=== PATIENT | female | born 1940 | race Caucasian/White ===

== ENCOUNTER 2019-06-27 08:55 | Emergency (ER) | payer MEDICARE, OTHER ==
--- NOTE | 2019-06-27 09:18 | ED ---
Complex/Multi-Sys Presentation - HPI Summary HPI Summary: This pt is a 78 Y/O F presenting to [facility] with a CC of a fall that happened on . She states that she hit the R side of her face and caused an abrasion to her R eyebrow. She states that her head hurts with palpation. She also has pain on her R hip which is more severe than her head and is currently rated an 8 /10 in severity. She also stated that her L leg is bruised. She denies any CP, headaches, neck pain, CP, generalized weakness, and LOC. She has a PMHx of HTN and CHF. She is not currently on blood thinners. - History Of Current Complaint Time Seen by Provider: 06/27/19 09:03 Hx Obtained From: Patient Onset/Duration: Sudden Onset, Lasting Days - 3, Still Present Timing: Constant Severity Currently: Severe - 8/10 Severity Initially: Severe Location: Negative Aggravating Factor(s): Pt suffered a fall 06/24/19 Alleviating Factor(s): nothing Associated Signs And Symptoms: Positive: Other - NEGATIVE: neck pain, and LOC. POSITIVE: pain to R hip, pain to forehead, abrasion on R eyebrow, L leg bruised. Negative: Weakness, Headache, SOB, Chest Pain - Allergies/Home Medications Allergies/Adverse Reactions: Allergies Allergy/AdvReac Type Severity Reaction Status Date / Time No Known Allergies Allergy Verified 06/27/19 09:17 Home Medications: Home Medications Acetaminophen [Pain Relief] 1,000 mg PO TID 06/27/19 [History Confirmed 06/27/19 ] Calcium Polycarbophil [Fibercon] 625 mg PO DAILY 06/27/19 [History Confirmed 11/14] Carvedilol TAB* [Coreg TAB*] 6.25 mg PO BID 06/27/19 [History Confirmed 06/27/19 ] Citalopram TAB* [Celexa TAB*] 10 mg PO DAILY 06/27/19 [History Confirmed ] Melatonin 4 mg PO BEDTIME 06/27/19 [History Confirmed 06/27/19] Rivaroxaban TAB(*) [Xarelto 20 mg] 20 mg PO DAILY 06/27/19 [History Confirmed ] Rosuvastatin Calcium [Crestor] 5 mg PO DAILY 06/27/19 [History Confirmed ] Sacubitril/Valsartan [Entresto 24 mg-26 mg Tablet] 1 tab PO BID 06/27/19 [ History Confirmed 06/27/19] Spironolactone 12.5 mg PO DAILY 06/27/19 [History Confirmed 06/27/19] PMH/Surg Hx/FS Hx/Imm Hx Previously Healthy: Yes Endocrine/Hematology History: Reports: Hx Anticoagulant Therapy, Hx Thyroid Disease Denies: Hx Diabetes Cardiovascular History: Reports: Hx Angina, Hx Congestive Heart Failure, Hx Hypertension, Hx Pacemaker/ICD Respiratory History: Denies: Hx Asthma, Hx Chronic Obstructive Pulmonary Disease (COPD) Musculoskeletal History: Reports: Hx Arthritis Neurological History: Reports: Hx Headaches Psychiatric History: Reports: Hx Anxiety, Hx Depression - Cancer History Cancer Type, Location and Year: OVARIAN CA Hx Chemotherapy: No Hx Radiation Therapy: No - Surgical History Surgery Procedure, Year, and Place: Repair of Right Lower Leg s/p fracture. Hysterectomy Infectious Disease History: No Infectious Disease History: Denies: Traveled Outside the in Last 30 Days - Social History Occupation: Retired Lives: At [facility] Substance Use Type: Reports: None Review of Systems Negative: Fever Negative: Chest Pain Negative: Shortness Of Breath Positive: Other - POSITIVE: R hip pain, forehead pain Skin: Negative - neck pain , Other - R eyebrow abrasion, L upper leg bruising Neurological: Negative - LOC Negative: Headache, Weakness All Other Systems Reviewed And Are Negative: Yes Physical Exam - Summary Physical Exam Summary: Appearance: The patient is well-nourished in no acute distress and in no acute pain. Skin: Resolving hematoma on the L medial upper leg with induration, superficial laceration above the R eyebrow HEENT: The head is normocephalic and atraumatic. The pupils are equal and reactive. The conjunctivae are clear and without drainage. Nares are patent and without drainage. Mouth reveals moist mucous membranes and the throat is without erythema and exudate. The external ears are intact. The ear canals are patent and without drainage. The tympanic membranes are intact. Neck: The neck is supple with full range of motion and non-tender. There are no carotid bruits. There is no neck vein distension. Respiratory: Chest is non-tender. Lungs are clear to auscultation and breath sounds are symmetrical and equal. Cardiovascular: Heart is regular rate and rhythm. There is no murmur or rub auscultated. There is no peripheral edema and pulses are symmetrical and equal. Abdomen: The abdomen is soft and non-tender. There are normal bowel sounds heard in all four quadrants and there is no organomegaly palpated. Musculoskeletal: There is Tenderness on the R paralumbar and sciatic area noted. Extremities are non-tender with full range of motion. There is good capillary refill. There is no peripheral edema or calf tenderness elicited. Neurological: Patient is alert and oriented to person, place and time. The patient has symmetrical motor strength in all four extremities. Cranial nerves are grossly intact. Deep tendon reflexes are symmetrical and equal in all four extremities. Psychiatric: The patient has an appropriate affect and does not exhibit any anxiety or depression. Triage Information Reviewed: Yes Vital Signs On Initial Exam: Initial Vitals Temp Pulse Resp BP Pulse Ox 97.9 F 85 15 111/68 97 06/27/19 09:08 06/27/19 09:08 06/27/19 09:08 06/27/19 09:08 06/27/19 09:08 Vital Signs Reviewed: Yes Diagnostics - Vital Signs Vital Signs Temp Pulse Resp BP Pulse Ox 06/27/19 09:08 97.9 F 85 15 111/68 97 - Laboratory Lab Statement: Any lab studies that have been ordered have been reviewed, and results considered in the medical decision making process. - CT Pelvis CT CT Interpretation Completed By: Radiologist Summary of CT Findings: No fracture of the left hip or pelvis is noted although degenerative changes are noted. Sacroiliac joint degenerative change is noted. ED physician has reviewed this report. Lumbar Spine CT CT Interpretation Completed By: Radiologist Summary of CT Findings: Ankylosis of the T12-L5 vertebral bodies unchanged from previous exam. No free fluid is identified. ED physician has reviewed this report. Complex Multi-Symp Course/Dx Course Of Treatment: Ms. Jones took a fall 3 days ago and was sent over from [facility] because she has continued pain in her back and hips. She did sustain some bruises at the time of the fall which are resolving. She has a large medial thigh ecchymotic area with some induration on the left. Again this looks like it's resolving and is not where she indicates her pain is to me. Her abdomen is soft and nontender. CT of her lumbar spine and pelvis show no acute pathology. I will treat her with pain medication at this point as I think she is wrenched her back and it will take some time to recover. - Diagnoses Provider Diagnoses: Hematoma, Low back strain Discharge ED - Sign-Out/Discharge Documenting (check all that apply): Patient Departure Patient Received Moderate/Deep Sedation with Procedure: No - Discharge Plan Condition: Good Disposition: HOME Prescriptions: traMADol TAB* [Ultram*] 50 mg PO Q6HR PRN #20 tab MDD 4 PRN Reason: Pain Patient Education Materials: Lower Back Exercises (ED), Hematoma (ED) Referrals: [facility] [Outside] - 3 Days Additional Instructions: PLEASE FOLLOW UP WITH YOUR PRIMARY CARE PROVIDER IN 2-3 DAYS AND RETURN TO THE EMERGENCY DEPARTMENT FOR ANY NEW OR WORSENING SYMPTOMS. Take the prescribed medications as directed. - Billing Disposition and Condition Condition: GOOD Disposition: Home - Attestation Statements Document Initiated by Scribe: Yes Documenting Scribe: Ed Deleon Provider For Whom Jenifer is Documenting (Include Credential): Anil Silva MD Scribe Attestation: Ed Morgan, scribed for Anil Silva MD on 06/27/19 at 1129. Scribe Documentation Reviewed: Yes Provider Attestation: The documentation as recorded by the Ed segura accurately reflects the service I personally performed and the decisions made by Anil hancock MD Status of Scribe Document: Viewed
[2019-06-27] MEDS ORDERED: traMADol TAB* 50 MG PO ONE (10:41)
[2019-06-27 10:53] VITALS: BP 111/72
== END 2019-06-27 10:52 | disposition home or self-care (01) ==
LOC: ED 08:55
DX: S00.83XA Contusion of other part of head, initial encounter (principal); S39.012A Strain of muscle, fascia and tendon of lower back, initial encounter; M54.2 Cervicalgia; W19.XXXA Unspecified fall, initial encounter; Y92.9 Unspecified place or not applicable; I10 Essential (primary) hypertension; I50.9 Heart failure, unspecified; Z79.899 Other long term (current) drug therapy; Z79.01 Long term (current) use of anticoagulants; E03.9 Hypothyroidism, unspecified; I20.9 Angina pectoris, unspecified; Z95.0 Presence of cardiac pacemaker; R51 Headache
CPT/HCPCS: 72131; 72192; 99283; A9270-GY

== ENCOUNTER 2020-01-19 16:59 | Emergency (ER) | payer MEDICAID, MEDICARE, OTHER ==
[2020-01-19] MEDS ORDERED: NS 0.9% 1000 ML** 1,000 ML IV ONE (17:28)
--- NOTE | 2020-01-19 17:34 | ED ---
Adult Trauma - HPI Summary HPI Summary: Patient is an 79 y/o F presenting to [facility] with complaints of BEATTY, bilateral hip pain, and tailbone pain secondary to a fall [employer]. It is reported that the patient was in the bathroom trying to take her socks off when she lost her balance and fell. Patient notes contusion to her right forehead. No LOC reported , patient was not able to ambulate after the fall. She notes that she was feeling some SOB after the fall but this has since resolved. Patient is on Xarelto due to Hx of CVA. 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 Pain at hips is characterized as a "pins and needles" sensation. No N/V , neck pain, chest pain reported. Patient does note that she has some tingling to her BLE. Home medications and allergies are reviewed. - History of Current Complaint Time Seen by Provider: 01/19/20 17:10 Hx Obtained From: Patient Mechanism of Injury: Fall Ambulatory at the Scene: No Loss of Consciousness: no loss of consciousness Restraints: None Onset/Duration: Still Present Onset of Pain: Prior to Arrival Current Severity: Severe Pain Intensity: 8 Pain Scale Used: 0-10 Numeric Location: Head, Back, Abdomen/Pelvis - hips Associated Signs & Symptoms: Positive: Other: - positive - BEATTY, bilateral hip pain, tailbone pain, fall, tingling to BLE; negative - neck pain. Negative: Chest Pain, Nausea/Vomiting, Loss of Consciousness - Allergy/Home Medications Allergies/Adverse Reactions: Allergies Allergy/AdvReac Type Severity Reaction Status Date / Time No Known Allergies Allergy Verified 06/27/19 09:17 Home Medications: Home Medications Digoxin TAB* [Lanoxin TAB*] 0.125 mg PO MOWEFR 01/20/13 [History Confirmed 01/18] Levothyroxine TAB* [Synthroid 25 MCG TAB*] 25 mcg PO QAM 01/20/13 [History Confirmed 01/19/20] Calcium Polycarbophil [Fibercon] 625 mg PO DAILY 06/27/19 [History Confirmed ] Carvedilol TAB* [Coreg TAB*] 6.25 mg PO BID 06/27/19 [History Confirmed 01/19/20 ] Melatonin 4 mg PO BEDTIME 06/27/19 [History Confirmed 01/19/20] Rivaroxaban TAB(*) [Xarelto 20 mg] 20 mg PO DAILY 06/27/19 [History Confirmed ] Sacubitril/Valsartan [Entresto 24 mg-26 mg Tablet] 1 tab PO BID 06/27/19 [ History Confirmed 01/19/20] Acetaminophen TAB* [Tylenol TAB*] 650 mg PO BID PRN 01/19/20 [History Confirmed 01/19/20] Gabapentin CAP(*) [Neurontin 100 mg CAP(*)] 200 mg PO BEDTIME 01/19/20 [History Confirmed 01/19/20] HYDROcodone/ACETAMIN 5-325 MG* [[place] 5-325 TAB*] 1 tab PO QID PRN 01/19/20 [ History Confirmed 01/19/20] Nystatin TOP POWDER* 1 applic TOPICAL BID PRN 01/19/20 [History Confirmed ] Rosuvastatin (NF) [Crestor (NF)] 5 mg PO DAILY 01/19/20 [History Confirmed 01/18] Sennosides/Docusate Sodium [Senna Plus 8.6-50 mg Tablet] 2 tab PO BEDTIME [History Confirmed 01/19/20] PMH/Surg Hx/FS Hx/Imm Hx Endocrine/Hematology History: Reports: Hx Anticoagulant Therapy, Hx Thyroid Disease Denies: Hx Diabetes Cardiovascular History: Reports: Hx Angina, Hx Congestive Heart Failure, Hx Hypertension, Hx Pacemaker/ICD Respiratory History: Denies: Hx Asthma, Hx Chronic Obstructive Pulmonary Disease (COPD) Musculoskeletal History: Reports: Hx Arthritis Neurological History: Reports: Hx Headaches Psychiatric History: Reports: Hx Anxiety, Hx Depression - Cancer History Cancer Type, Location and Year: OVARIAN CA Hx Chemotherapy: No Hx Radiation Therapy: No - Surgical History Surgery Procedure, Year, and Place: Repair of Right Lower Leg s/p fracture. Hysterectomy Infectious Disease History: No Infectious Disease History: Denies: Traveled Outside the [place] in Last 30 Days - Family History Known Family History: Negative: Cardiac Disease, Hypertension, Diabetes - Social History Alcohol Use: None Substance Use Type: Reports: None Smoking Status (MU): Former Smoker Review of Systems Negative: Chest Pain Negative: Vomiting, Nausea Musculoskeletal: Other - positive - hip pain bilaterally, tailbone pain, fall; negative - neck pain Positive: Headache, Paresthesia - BLE All Other Systems Reviewed And Are Negative: Yes Physical Exam - Summary Physical Exam Summary: Constitutional: Well-developed, Well-nourished, Alert. (-) Distressed Skin: Warm, Dry HENT: Normocephalic; Right forehead contusion Eyes: Conjunctiva normal Neck: There is slight cervical spine tenderness on palpation. (-) JVD, (-) Stridor, (-) Tracheal deviation Cardio: Rhythm regular, rate normal, Heart sounds normal; Intact distal pulses; The pedal pulses are 2+ and symmetric. Radial pulses are 2+ and symmetric. (-) Murmur Pulmonary/Chest wall: Effort normal. (-) Respiratory distress, (-) Wheezes, (-) Rales Abd: Soft, (-) tenderness, (-) Distension, (-) Guarding, (-) Rebound Musculoskeletal: Lower thoracic and lumbar spine tenderness is noted, some pain over right hip. Lymph: (-) Cervical adenopathy Neuro: Alert, Oriented x3; slightly slurred speech secondary to prior CVA, no other motor deficits appreciated; GCS 15. Psych: Mood and affect Normal Triage Information Reviewed: Yes Vital Signs On Initial Exam: Initial Vitals Temp Pulse Resp BP Pulse Ox 97.9 F 86 18 138/79 95 01/19/20 17:13 01/19/20 17:13 01/19/20 17:13 01/19/20 17:13 01/19/20 17:13 Vital Signs Reviewed: Yes - [place] Coma Scale Best Eye Response: 4 - Spontaneous Best Motor Response: 6 - Obeys Commands Best Verbal Response: 5 - Oriented Coma Scale Total: 15 Procedures - Sedation Patient Received Moderate/Deep Sedation with Procedure: No Diagnostics - Vital Signs Vital Signs Temp Pulse Resp BP Pulse Ox 01/19/20 17:13 97.9 F 86 18 138/79 95 - Laboratory Result Diagrams: 01/19/20 17:35 01/19/20 17:35 Lab Statement: Any lab studies that have been ordered have been reviewed, and results considered in the medical decision making process. - CT BRAIN CT CT Interpretation Completed By: Radiologist Summary of CT Findings: IMPRESSION: 1. There is right frontal scalp contusion. 2. There is stable age-related diffuse cerebral volume loss and chronic. microvascular ischemic disease. Stable encephalomalacia of the right cerebellar. hemisphere possibly due to chronic infarct. 3. No acute intracranial pathology. THIS REPORT WAS REVIEWED BY ED PHYSICIAN. CERVICAL SPINE CT CT Interpretation Completed By: Radiologist Summary of CT Findings: IMPRESSION: No acute cervical spine fracture or other acute traumatic CT pathology. THIS REPORT WAS REVIEWED BY ED PHYSICIAN. - EKG 1742 Cardiac Rate: Other Rate - paced rhythm with rate of 85 BPM Summary of EKG Findings: EKG showed paced rhythm with rate of 85 BPM, no STEMI. ED physician has reviewed and interpreted this EKG. 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 It is reported that the patient was in the bathroom trying to take her socks off when she lost her balance and fell. Patient notes contusion to her right forehead. No LOC reported, patient was not able to ambulate after the fall. She notes that she was feeling some SOB after the fall but this has since resolved. Patient is on Xarelto due to Hx of CVA. 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 Pain at hips is characterized as a "pins and needles" sensation. No N/V, neck pain, chest pain reported. Patient does note that she has some tingling to her BLE. On physical exam, patient is noted to have a right -sided forehead contusion, slight cervical spine tenderness on palpation, lower throacic and lumbar spine tenderness is noted as well. Patient has pain over her right hip. She has slightly slurred speech secondary to prior CVA. No other motor deficits appreciated. EKG showed paced rhythm with rate of 85 BPM, no STEMI. BRAIN CT IMPRESSION: 1. There is right frontal scalp contusion. 2. There is stable age-related diffuse cerebral volume loss and chronic. microvascular ischemic disease. Stable encephalomalacia of the right cerebellar. hemisphere possibly due to chronic infarct. 3. No acute intracranial pathology. CERVICAL SPINE CT IMPRESSION: No acute cervical spine fracture or other acute traumatic CT pathology. Bloodwork was obtained and within normal limits with exception of BUN/creatinine ratio 23.8 and glucose 101. Patient is signed-out to Dr. Garay at 1900 01/19/20 pending right hip/ pelvis x-ray. - Diagnoses Provider Diagnoses: Fall, Hip pain Discharge ED - Sign-Out/Discharge Documenting (check all that apply): Sign-Out Patient Signing out patient TO: Briana Garay - Discharge Plan Condition: Stable Disposition: HOME Patient Education Materials: Fall Prevention for Older Adults (ED), Hip Pain ( ED) Referrals: Nickie Oreilly MD [Primary Care Provider] - 3 Days Additional Instructions: Follow up with your primary care provider in 2-3 days. Return to the emergency department for any new or worsening symptoms. - Billing Disposition and Condition Condition: STABLE Disposition: Home - Attestation Statements Document Initiated by Jenifer: Yes Documenting Scribe: MARTHA ROSSI Provider For Whom Jenifer is Documenting (Include Credential): MEHREEN JEFFERS DO Scribjuliane Attestation: MARTHA Morgan scribed for MEHREEN JEFFERS DO on 01/20/20 at 1424. Scribe Documentation Reviewed: Yes Provider Attestation: The documentation as recorded by the MARTHA segura accurately reflects the service I personally performed and the decisions made by , MEHREEN JEFFERS DO Status of Scribjuliane Document: Viewed
[2020-01-19 17:43] LABS: ABS Eosinophils 0.1 10^3/ul (0-0.6); ABS Lymphocytes 1.6 10^3/ul (1.0-4.8); ABS Monocytes 0.7 10^3/ul (0-0.8); ABS Neutrophils 4.6 10^3/ul (1.5-7.7); Eosinophil % 1.4 %; Hematocrit 36 % (35-47); Hemoglobin 12.3 g/dL (12.0-16.0); Lymphocyte % 22.9 %; Mean Corpuscular HGB Conc 34 g/dL (31-36); Mean Corpuscular Hemoglobin 31 pg (27-31); Mean Corpuscular Volume 90 fL (80-97); Mean Platelet Volume 8.9 fL (7.4-10.4); Nucleated Red Blood Cells % 0.1; Platelet Count 192 10^3/uL (150-450); Red Cell Distribution Width 13 % (10-15); White Blood Count 7.1 10^3/uL (3.5-10.8)
--- OUTSIDE RECORDS SUMMARY | 2020-01-19 17:50 | XMS REPORT | Continuity of Care Document ---
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 Onset: 07/31/2012 Left heart failure Tom Luz M.D. Onset: 07/31/2012 Mitral valve disorder Tom Luz M.D. Onset: 07/31/2012 Chronic ischemic heart disease Tom Luz M.D. Onset: 07/31/2012 Electrocardiogram abnormal Cardiology Doctor Loc 39 Onset: 06/04/2013 Coronary arteriosclerosis Cardiology Doctor Loc 39 Onset: 06/04/2013 Persistent atrial fibrillation [facility] ECHO Schedule Onset: 04/28/2017 Social History Type Date Description Comments Sex Unknown Tobacco Use Start: Unknown End: Former Cigarette Smoker smoked for a few Unknown 1-5 Cigarettes Daily years-quit 30 years ago ETOH Use Denies alcohol use Tobacco Use Start: Unknown End: Patient is a former Unknown smoker Recreational Drug Use Denies Drug Use Smoking Status Reviewed: 12/16/19 Patient is a former smoker Exercise Type/Frequency Does not exercise Allergies, Adverse Reactions, Alerts Description No Known Drug Allergies Medications Active Medications SIG Qnty Indications Ordering Date Provider Spironolactone 1/2 tab by mouth 45tabs I42.9 Madhavi Hawkins, 02/22/2019 25mg Tablets every day N.P. Fibercon 1 by mouth every Other Ordering 01/20/2019 625mg Tablets day Provider Melatonin 4 tablets by Other Ordering 12/28/2018 1mg Tablets mouth 1-2 hours Provider before bedtime for sleep. prn Tussin Cough DM every 6 hours as Other Ordering 12/02/2018 needed Provider 100-10mg/5ML Syrup Imodium A-D one after each 30caps Other Ordering 12/02/2018 2mg Capsules loose stool prn Provider Ipratropium 1 unit every 8 270ml Other Ordering 11/24/2018 [place]/Albuterol hours as needed Provider Sulfate 0.5-2.5(3)mg/3ML Solution Digoxin 1 by mouth every Other Ordering 03/13/2017 125mcg Tablets friday, Provider friday, friday Artificial Tears apply 2 drops 15ml Other Ordering 03/13/2017 1.4% twice daily Provider Solution Roland one tab by mouth Unknown 5-325mg Tablets every 4-6 hours as needed pain Gabapentin 1 capsule three Unknown 100mg Capsules times daily. SB Docusate Unknown Sodium/Senna 8.6-50mg Tablets Crestor 1 by mouth every Unknown 5mg Tablets day Entresto take 1 tab by Unknown 24-26mg Tablets mouth twice daily Coreg 1 tab by mouth Unknown 6.25mg Tablets twice a day Xarelto 1 by mouth every Unknown 20mg Tablets day Acetaminophen Extra 2 tabs, every 8 Unknown Strength hours 500mg Tablets Levothyroxine Sodium 1 po qd 90tabs Unknown 25mcg Tablets Immunizations Description No Information Available Vital Signs Date Vital Result Comment 12/16/2019 11:22am Height 62 inches 5'2" Heart Rate 70 /min BP Systolic 102 mmHg Rue reg cuff BP Diastolic 70 mmHg Rue reg cuff Respiratory Rate 18 /min Ejection Fraction <20% ECHO 01/12/2019 02/22/2019 9:50am Height 62 inches 5'2" Weight 140.00 lb Estimated d/t mobility BP Systolic Sitting 130 mmHg Lue reg cuff BP Diastolic Sitting 60 mmHg Lue reg cuff BMI (Body Mass Index) 25.6 kg/m2 Ejection Fraction <20% Echo 01/12/2019 Results Test Acquired Date Facility Test Result H/L Range Note Lipid Profile 12/21/2019 [facility] Triglycerides 169 mg/dL 1, 2 (Trig/Chol/HDL) [address] [place] [address] [phone] Cholesterol 164 mg/dL 3 HDL Cholesterol 33.6 mg/dL 4 LDL Cholesterol 97 mg/dL 5 1 [id number] 2 Desirable: <150 Borderline High: 150-199 High: 200-499 Very High: >500 3 Desirable: <200 Borderline High: 200-239 High: >239 4 Low: <40 Desirable: 40-60 High: >60 5 Desirable: <100 Near Optimal: 100-129 Borderline High: 130-159 High: 160-189 Very High: >189 Procedures Date Code Description Status 12/16/2019 22371 Pace Maker Eval W/Iterative Adjment Dual Lead Completed 12/16/2019 87704 Pace Maker Eval W/Iterative Adjment Dual Lead Completed 09/15/2019 57016 Pace Maker Eval W/Iterative Adjment Dual Lead Completed 09/15/2019 93975 Pace Maker Eval W/Iterative Adjment Dual Lead Completed Medical Devices Description No Information Available Encounters Type Date Location Provider Dx Diagnosis Office Visit 12/16/2019 [facility] Madhavi Hawkins, I49.5 Sick sinus 11:00a Of Stars Specialist N.P. syndrome Z95.0 Presence of cardiac pacemaker I50.22 Chronic systolic (congestive) heart failure I48.0 Paroxysmal atrial fibrillation E78.5 Hyperlipidemia, unspecified I10 Essential (primary) hypertension Assessments Date Code Description Provider 01/05/2020 I49.5 Sick sinus syndrome [facility] Pacer Schedule 01/05/2020 Z95.0 Presence of cardiac pacemaker [facility] Pacer Schedule 12/16/2019 I49.5 Sick sinus syndrome Tom Luz M.D. 12/16/2019 I49.5 Sick sinus syndrome Madhavi Hawkins, N.P. 12/16/2019 I49.5 Sick sinus syndrome [facility] Pacer Schedule 12/16/2019 Z95.0 Presence of cardiac pacemaker Tom Luz M.D. 12/16/2019 Z95.0 Presence of cardiac pacemaker Madhavi Hawkins, N.P. 12/16/2019 Z95.0 Presence of cardiac pacemaker [facility] Pacer Schedule 12/16/2019 I50.22 Chronic systolic (congestive) heart Madhavi Hawkins, N.P. failure 12/16/2019 I48.0 Paroxysmal atrial fibrillation Madhavi S. Foster, N.P. 12/16/2019 E78.5 Hyperlipidemia, unspecified Madhavi Hawkins N.P. 12/16/2019 I10 Essential (primary) hypertension Madhavi Hawkins, N.P. 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 09/15/2019 Z95.0 Presence of cardiac pacemaker [facility] Pacer Schedule Plan of Treatment Future Appointment(s):01/10/2020 2:21 pm - N[facility] at [facility]12/16/2019 - Madhavi Hawkins, N.P.I49.5 Sick sinus jvkxnpxcF98.0 Presence of cardiac pacemakerRecommendations:Battery only has 3 months left WE will bring you back every month until pacer reaches [place] - at that point we will schedule you for a generator change.I50.22 Chronic systolic (congestive) heart failureFollow up:1 mo PO battery check and BP check with it 6mo OV JFM, PO priorRecommendations:BP is low Decrease spironolactone to 1/2 (25mg) tab lgmmdP31.0 Paroxysmal atrial snbttmesmigrX19.5 Hyperlipidemia, sblspcoygybP66 Essential (primary) hypertension Functional Status Description No Information Available Mental Status Description No Information Available Referrals Description No Information Available
--- OUTSIDE RECORDS SUMMARY | 2020-01-19 17:50 | XMS REPORT | Continuity of Care Document ---
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 [phone] Rv Servicer Problems Active Problems Provider Date Atrial fibrillation [...] unit every 8 270ml Other Ordering 11/24/2018 [place]/Albuterol hours as needed Provider Sulfate 0.5-2.5(3)mg/3ML Solution Digoxin 1 by mouth every Other Ordering 03/13/2017 125mcg Tablets friday, Provider friday, friday Artificial Tears apply 2 drops 15ml Other Ordering 03/13/2017 1.4% twice daily Provider Solution [place] one tab by mouth Unknown 5-325mg Tablets [...] Result H/L Range Note Lipid Profile 12/21/2019 [facility] Triglycerides 169 mg/dL 1, 2 (Trig/Chol/HDL) [address] [place] [address] [phone] Cholesterol 164 mg/dL 3 HDL Cholesterol 33.6 mg/dL 4 LDL Cholesterol 97 mg/dL 5 1 [id number] 2 Desirable: <150 Borderline High: 150-199 High: 200-499 Very High: >500 3 Desirable: <200 Borderline High: 200-239 High: >239 4 Low: <40 Desirable: 40-60 High: >60 5 Desirable: <100 Near Optimal: 100-129 Borderline High: 130-159 High: 160-189 Very High: >189 Procedures Date Code Description Status 01/05/2020 43479 Interrogation Device Eval In Person W/ Completed Analysis,Single,Dual,Mul 01/05/2020 84142 Interrogation Device Eval In Person W/ Completed Analysis,Single,Dual,Mul 12/16/2019 48749 Pace Maker Eval W/Iterative Adjment Dual Lead Completed 12/16/2019 59983 Pace Maker Eval W/Iterative Adjment Dual Lead Completed 09/15/2019 56082 Pace Maker Eval W/Iterative Adjment Dual Lead Completed 09/15/2019 61467 Pace Maker Eval W/Iterative Adjment Dual Lead Completed Medical Devices Description No Information Available Encounters Type Date Location Provider Dx Diagnosis Office Visit 12/16/2019 [facility] Madhavi Hawkins, I49.5 Sick sinus 11:00a Of Elementary Reading Tutor N.P. syndrome Z95.0 Presence of cardiac pacemaker I50.22 Chronic systolic (congestive) heart failure I48.0 Paroxysmal atrial fibrillation E78.5 Hyperlipidemia, unspecified I10 Essential (primary) hypertension Assessments Date Code Description Provider 01/05/2020 I49.5 Sick sinus syndrome Tom Luz M.D. 01/05/2020 I49.5 Sick sinus syndrome [facility] Pacer Schedule 01/05/2020 Z95.0 Presence of cardiac pacemaker Tom Luz M.D. 01/05/2020 Z95.0 Presence of cardiac pacemaker [facility] Pacer Schedule 12/16/2019 I49.5 Sick sinus syndrome Tom Luz M.D. 12/16/2019 I49.5 Sick sinus syndrome Madhavi Hawkins N.P. 12/16/2019 I49.5 Sick sinus syndrome [facility] Pacer Schedule 12/16/2019 Z95.0 Presence of cardiac pacemaker Tom Luz M.D. 12/16/2019 Z95.0 Presence of cardiac pacemaker Madhavi Hawkins, N.P. 12/16/2019 Z95.0 Presence of cardiac pacemaker [facility] Pacer Schedule 12/16/2019 I50.22 Chronic systolic (congestive) heart Madhavi Hawkins, N.P. failure 12/16/2019 I48.0 Paroxysmal atrial fibrillation Madhavi Hawkins, N.P. 12/16/2019 E78.5 Hyperlipidemia, unspecified Madhavi Hawkins, N.P. 12/16/2019 I10 Essential (primary) hypertension Madhavi Hawkins, N.P. 11/18/2019 I50.22 Chronic systolic (congestive) heart Nickie Oreilly MD failure 11/18/2019 I48.0 Paroxysmal atrial fibrillation Nickie Oreilly MD 11/18/2019 I49.5 Sick sinus syndrome Nickie Oreilly MD 11/18/2019 E78.5 Hyperlipidemia, unspecified Nickie Oreilly, 11/18/2019 I10 Essential (primary) hypertension Nickie Oreilly [...] pacemaker [facility] Pacer Schedule Plan of Treatment 12/16/2019 - Madhavi Hawkins, N.P.I49.5 Sick sinus mqetcvqmF31.0 Presence of cardiac pacemakerRecommendations:Battery only has 3 months left WE will bring you back every month until pacer reaches [place] - at that point we will schedule you for a generator change.I50.22 Chronic systolic (congestive) heart failureFollow up:1 mo PO battery check and BP check with it 6mo OV JFM, PO priorRecommendations:BP is low Decrease spironolactone to 1/2 (25mg) tab ezqqbN36.0 Paroxysmal atrial eiotdxkisuywX10.5 Hyperlipidemia, jyjjumfzkmlU34 Essential (primary) hypertension Functional Status Description No Information Available Mental Status Description No Information Available Referrals Description No Information Available
--- OUTSIDE RECORDS SUMMARY | 2020-01-19 17:50 | XMS REPORT | Continuity of Care Document ---
:1940 External Reference #:[id number] Author Name Madhavi Hawkins N.P. (transmitted by agent of provider Maria C Watson) Address [address] 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 Problems Active Problems Provider Date Atrial fibrillation [...] unit every 8 270ml Other Ordering 11/24/2018 [place]/Albuterol hours as needed Provider Sulfate 0.5-2.5(3)mg/3ML Solution Digoxin 1 by mouth every Other Ordering 03/13/2017 125mcg Tablets friday, Provider friday, friday Artificial Tears apply 2 drops 15ml Other Ordering 03/13/2017 1.4% twice daily Provider Solution [place] one tab by mouth Unknown 5-325mg Tablets [...] kg/m2 Ejection Fraction <20% Echo 01/12/2019 Results Description No Information Available Procedures Date Code Description Status 12/16/2019 58779 Pace Maker Eval W/Iterative Adjment Dual Lead Completed 09/15/2019 43260 Pace Maker Eval W/Iterative Adjment Dual Lead Completed 09/15/2019 39418 Pace Maker Eval W/Iterative Adjment Dual Lead Completed Medical Devices Description No Information Available Encounters Description No Information Available Assessments Date Code Description Provider 12/16/2019 I49.5 Sick sinus syndrome Madhavi Hawkins, N.P. 12/16/2019 I49.5 Sick sinus syndrome [facility] Pacer Schedule 12/16/2019 Z95.0 Presence of cardiac pacemaker Madhavi Hawkins, N.P. 12/16/2019 Z95.0 Presence of cardiac pacemaker [facility] Pacer Schedule 12/16/2019 I50.22 Chronic systolic (congestive) heart Madhavi Hawkins, N.P. failure 12/16/2019 I48.0 Paroxysmal atrial fibrillation Madhavi Hawkins N.P. 12/16/2019 E78.5 Hyperlipidemia, unspecified Madhavi Hawkins, [...] [facility] Pacer Schedule Plan of Treatment Future Appointment(s):01/06/2020 11:30 am - [facility] Schedule at [facility]12/16/2019 - Madhavi Hawkins N.P.I49.5 Sick sinus uqbqxdeaW24.0 Presence of cardiac pacemakerRecommendations:Battery only has 3 months left WE will bring you back every month until pacer reaches [place] - at that point we will schedule you for a generator change.I50.22 Chronic systolic ( congestive) heart failureFollow up:1 mo PO battery check and BP check with it 6mo OV JFM, PO priorRecommendations:BP is low Decrease spironolactone to 1/2 ( 25mg) tab vinfaJ08.0 Paroxysmal atrial virulaeyfhgxB74.5 Hyperlipidemia, gilmrybofexN16 Essential (primary) hypertension Functional Status Description No Information Available Mental Status Description No Information Available Referrals Description No Information Available
[2020-01-19 18:02] LABS: Albumin 3.7 g/dL (3.2-5.2); Albumin/Globulin Ratio 1.1 (1-3); BUN/Creatinine Ratio 23.8 (8-20); Calcium 9.6 mg/dL (8.6-10.3); EGFR African American 78.9 (>60); EGFR Non-African American 65.2 (>60); Globulin 3.5 g/dL (2-4); Potassium 4.2 mmol/L (3.5-5.0); Total Bilirubin 0.3 mg/dL (0.2-1.0); Total Protein 7.2 g/dL (6.4-8.9)
[2020-01-19 18:03] LABS: Troponin I 0.01 ng/mL (<0.03)
[2020-01-19 18:43] LABS: Activated Partial Thrombo Time 40.6 seconds (26.0-38.0); INR 1.34 (0.82-1.09)
--- NOTE | 2020-01-19 19:20 | ED ---
Progress - Progress Note Progress Note: The patient is a sign-out from Dr. Delgado Corley DO, to Dr. Briana Garay MD, at change of shift at 1900 on 01/19/2020, pending CXR, Right Hip/ Pelvis XR, Lumbar Spine XR, and disposition. CXR is unchanged from previous, no acute findings. Hip/Pelvis XR and Lumbar Spine XR unremarkable for significant findings. Plan for Pelvis CT. Patient received Tylenol. Pelvis CT is negative. Patient is wheelchair-bound at baseline. She is safe for discharge at this time. - Results/Orders Results/Orders: CXR: No pleural effusion. No infiltrate. This imaging scan was reviewed and interpreted by Dr. Garay, pending official read. Hip/Pelvis XR: No acute findings. This imaging scan was reviewed and interpreted by Dr. Garay, pending official read. Lumbar Spine XR: No acute findings. This imaging scan was reviewed and interpreted by Dr. Garay, pending official read. Pelvis CT Impression: No visible acute fracture or dislocation. This report was reviewed by Dr. Garay. Re-Evaluation - Re-Evaluation First Eval Re-Evaluation Time: 20:45 Comment: Will order Tylenol, Pelvis CT Second Eval Re-Evaluation Time: 22:00 Comment: Patient wheelchair-bound at baseline, safe for discharge Course/Dx - Course Course Of Treatment: Patient received Tyelnol in the ED. - Diagnoses Provider Diagnoses: Fall, Hip pain Discharge ED - Sign-Out/Discharge Documenting (check all that apply): Patient Departure - Patient will be discharged home., Receiving Sign-Out Receiving patient FROM: Gómez Corley - Patient is a sign-out from Dr. Delgado Corley DO, at 1900 on 01/19/2020, pending CXR, Right Hip/Pelvis XR, Lumbar Spine XR, and disposition. - Discharge Plan Condition: Stable Disposition: HOME Patient Education Materials: Fall Prevention for Older Adults (ED), Hip Pain ( ED) Referrals: Nickie Oreilly MD [Primary Care Provider] - 3 Days Additional Instructions: Follow up with your primary care provider in 2-3 days. Return to the emergency department for any new or worsening symptoms. - Billing Disposition and Condition Condition: STABLE Disposition: Home - Attestation Statements Document Initiated by Scribe: Yes Documenting Scribe: Mag Ahn Provider For Whom Scribe is Documenting (Include Credential): Briana Garay MD Scribe Attestation: I, Mag Ahn, scribed for Briana Garay MD on 01/20/20 at 0036. Scribe Documentation Reviewed: Yes Provider Attestation: The documentation as recorded by the Mag segura accurately reflects the service I personally performed and the decisions made by me, Briana Garay MD Status of Scribe Document: Viewed Procedures - Sedation Patient Received Moderate/Deep Sedation with Procedure: No
[2020-01-19] MEDS ORDERED: Acetaminophen TAB* 325 MG PO ONE (20:45)
[2020-01-19 22:33] VITALS: BP 162/84
== END 2020-01-20 | disposition home or self-care (01) ==
LOC: ED 16:59
DX: M25.552 Pain in left hip (principal); M25.551 Pain in right hip; M51.36 Other intervertebral disc degeneration, lumbar region; M85.80 Other specified disorders of bone density and structure, unspecified site; R51 Headache; E03.9 Hypothyroidism, unspecified; F41.9 Anxiety disorder, unspecified; I10 Essential (primary) hypertension; Z91.81 History of falling; F32.9 Major depressive disorder, single episode, unspecified; R94.31 Abnormal electrocardiogram [ECG] [EKG]; Z79.01 Long term (current) use of anticoagulants; Z79.899 Other long term (current) drug therapy; Z85.43 Personal history of malignant neoplasm of ovary; Z95.0 Presence of cardiac pacemaker; Z79.890 Hormone replacement therapy; Z87.891 Personal history of nicotine dependence
CPT/HCPCS: 36415; 70450; 71045; 72100; 72125; 72192; 80053; 84484; 85025; 85610; 85730; 93005; 99284; A9270-GY